=== PATIENT | male | born 1990 | race Caucasian/White ===

== ENCOUNTER 2016-09-02 10:52 | Emergency (ER) | payer OTHER ==
[~2016-09-02] VITALS: Ht 185.4 cm; Wt 135.4 kg
[~2016-09-02 10:52] MED LIST: BACTRIM,SEPT1 TABLET PO; FLEXERIL10 MG PO; MOTRIN800 MG PO; NAPROXEN500 MG PO; NORCO 5/3251 TABLET PO
[2016-09-02 11:03] VITALS: BP 128/96
[2016-09-02] MEDS ORDERED: TRAMADOL HCL50 MG PO (13:24)
== END 2016-09-02 13:47 | disposition home or self-care (01) ==
LOC: EME 10:52
PROC: 0HBRXZZ Excision of Toe Nail, External Approach (ICD-10-PCS; principal; 2016-09-02)
DX: L60.0 Ingrowing nail (principal)
CPT/HCPCS: 99281; 99284; S0020